=== PATIENT | female | born 2005 | race African-American/Black ===

== ENCOUNTER 2024-02-08 03:37 | Emergency (ER) | payer OTHER, SELFPAY | END 2024-02-08 04:32 | disposition home or self-care (01) | LOC: ERS 03:37 | DX: R42 Dizziness and giddiness (principal); Z55.6 Problems related to health literacy | CPT/HCPCS: 36416; 99284 ==

== ENCOUNTER 2024-03-02 18:23 | Emergency (ER) | payer SELFPAY ==
[2024-03-02] MEDS ORDERED: Ibuprofen 200 MG TAB ONE (18:52)
== END 2024-03-02 19:13 | disposition home or self-care (01) ==
LOC: ERS 18:23
DX: M72.2 Plantar fascial fibromatosis (principal)
CPT/HCPCS: 99283

== ENCOUNTER 2024-06-17 07:54 | Emergency (ER) | payer SELFPAY ==
[2024-06-17] MEDS ORDERED: Ketorolac Tromethamine 30 MG (1 mL) VIAL ONE (08:37)
[2024-06-17] MEDS ORDERED: methylPREDNISolone Sod Succ/PF 125 MG/2 ML VIAL ONE (08:37)
[2024-06-17] MEDS ORDERED: Methocarbamol 500 MG TAB ONE (08:43)
== END 2024-06-17 09:49 | disposition home or self-care (01) ==
LOC: ERS 07:54
DX: M62.830 Muscle spasm of back (principal); V89.2XXA Person injured in unspecified motor-vehicle accident, traffic, initial encounter; Y93.89 Activity, other specified
CPT/HCPCS: 72050; J1885; J2919

== ENCOUNTER 2024-08-10 08:28 | Emergency (ER) | payer SELFPAY ==
[2024-08-10] MEDS ORDERED: Ibuprofen 800 MG TAB ONE (08:43)
[2024-08-10] MEDS ORDERED: Metoclopramide HCl 10 MG TAB ONE (08:47)
== END 2024-08-10 09:50 | disposition home or self-care (01) ==
LOC: ERS 08:28
DX: R51.9 Headache, unspecified (principal); R29.700 NIHSS score 0
CPT/HCPCS: 99283